=== PATIENT | female | born 1940 | race Caucasian/White ===

== ENCOUNTER 2023-05-30 15:09 | Emergency (ER) | payer OTHER ==
[2023-05-30 15:28] VITALS: TEMP 97.9; BMI 26.9
[2023-05-30 16:22] LABS: HEMATOCRIT 41.3 % (32.4-45.2); HEMOGLOBIN 13.9 G/dL (10.7-15.3); MCH 31.3 pg (25.7-33.7); MCHC 33.7 g/dl (32.0-36.0); MEAN CELL VOLUME 92.8 fl (80-96); MEAN PLT VOLUME 8.2 fl (7.5-11.1); PLATELET COUNT 217.9 10^3/uL (134-434); RBC 4.45 10^6/uL (3.60-5.2); RDW 14.2 % (11.6-15.6); WHITE BLOOD COUNT 7.5 10^3/uL (4.0-10.8)
[2023-05-30 16:26] LABS: ALBUMIN 4.2 g/dl (3.4-5.0); BILIRUBIN,TOTAL 0.4 mg/dl (0.2-1); CALCIUM 9.2 mg/dl (8.5-10.1); CREATININE 0.6 mg/dl (0.6-1.3); MAGNESIUM 2.1 mg/dL (1.8-2.4); TOT PROT 6.3 g/dl (6.4-8.2)
[2023-05-30 16:49] LABS: PLATELET ESTIMATE ADEQUATE
[2023-05-30 17:02] LABS: N-TERMINAL BNP 92.2 pg/ml (5-450)
[2023-05-30] MEDS ORDERED: ASPIRIN 81 MG CHEWABLE TABLETS ONE (18:56)
[2023-05-30] MEDS: ASPIRIN 81 MG CHEWABLE TABLETS PO ONE (19:00)
[2023-05-30 19:49] VITALS: BP 124/65; PULSE 71; RESP 16
== END 2023-05-30 19:05 | disposition left against medical advice (07) ==
LOC: FER 15:09
DX: R07.9 Chest pain, unspecified (principal); M54.9 Dorsalgia, unspecified; Z20.822 Contact with and (suspected) exposure to COVID-19
CPT/HCPCS: 0241U-QW; 36415; 71045-TC-FY; 71275-TC; 74174-TC; 80053; 83735; 83880; 84484; 85027; 93005; 99285-25; Q9967